=== PATIENT | female | born 1945 | race Caucasian/White ===

== ENCOUNTER → 2017-01-14 | Outpatient (CLI) | payer OTHER ==
[~2017-01-14] MED LIST: ALEVE220 MG PO; ASPIRIN81 M1 PO; CALCIUM PO; CENTRUM SILVER1 CTB PO; CENTRUM SILVER1 EACH PO; COLACE100 MG PO; FLAX SEED OIL1000 M1 PO; K-BICARB99 MG PO; LEVOFLOXACIN500 MG PO; LEVOTHYROXINE0.1 MG PO; LOPRESSOR50 MG PO; NEXIUM40 MG PO; NORFLEX100 MG PO; NORVASC5 MG PO; PAXIL20 MG PO; ULTRAM50 MG PO; VITAMIN C1000 M2 PO; VITAMIN D1000 IU PO; Z-BEC1 TAB PO; ZOCOR20 MG PO; [UNRECOGNIZED DRUG - OTHER] PO
== END | disposition home or self-care (01) ==
LOC: RAD 10:50
DX: Z13.820 Encounter for screening for osteoporosis (principal); Z78.0 Asymptomatic menopausal state

== ENCOUNTER → 2017-04-08 | Outpatient (CLI) | payer OTHER | END | disposition home or self-care (01) | LOC: RAD 15:09 | DX: K59.00 Constipation, unspecified (principal); Z90.49 Acquired absence of other specified parts of digestive tract; Z98.890 Other specified postprocedural states ==

== ENCOUNTER → 2018-03-19 | Outpatient (CLI) | payer OTHER | END | disposition home or self-care (01) | LOC: RAD 15:10 | DX: J40 Bronchitis, not specified as acute or chronic (principal); I10 Essential (primary) hypertension ==

== ENCOUNTER → 2019-05-19 | Outpatient (CLI) | payer OTHER | END | disposition home or self-care (01) | LOC: RESCLI 01:08 | DX: M48.061 Spinal stenosis, lumbar region without neurogenic claudication (principal); J30.2 Other seasonal allergic rhinitis; M79.672 Pain in left foot; I10 Essential (primary) hypertension; E03.9 Hypothyroidism, unspecified; K21.9 Gastro-esophageal reflux disease without esophagitis; K59.00 Constipation, unspecified; E78.5 Hyperlipidemia, unspecified; M15.0 Primary generalized (osteo)arthritis; E66.9 Obesity, unspecified; E87.6 Hypokalemia; E55.9 Vitamin D deficiency, unspecified; Z68.34 Body mass index [BMI] 34.0-34.9, adult; Z79.899 Other long term (current) drug therapy; Z88.8 Allergy status to other drugs, medicaments and biological substances ==

== ENCOUNTER 2019-09-10 12:13 | Emergency (ER) | payer OTHER ==
[~2019-09-10] VITALS: Ht 165.1 cm; Wt 75.7 kg
[2019-09-10] MEDS ORDERED: PREDNISONE50 MG PO (14:12)
[2019-09-10] MEDS ORDERED: KENALOG 0.1%80 GM T (14:12)
[2019-09-10] MEDS ORDERED: LOPRESSOR50 M1 PO (15:05)
== END 2019-09-10 14:59 | disposition home or self-care (01) ==
LOC: ED 12:13
DX: L25.1 Unspecified contact dermatitis due to drugs in contact with skin (principal); T38.5X5A Adverse effect of other estrogens and progestogens, initial encounter; I10 Essential (primary) hypertension; E78.00 Pure hypercholesterolemia, unspecified; Z88.8 Allergy status to other drugs, medicaments and biological substances; Z79.899 Other long term (current) drug therapy; Z79.82 Long term (current) use of aspirin; Y92.89 Other specified places as the place of occurrence of the external cause

== ENCOUNTER → 2019-10-05 | Outpatient (CLI) | payer OTHER ==
[~2019-10-05] MED LIST changes: +KENALOG 0.1%80 GM T; +LOPRESSOR50 M1 PO; +PREDNISONE50 MG PO
== END | disposition home or self-care (01) ==
LOC: RESCLI 00:36
DX: K21.9 Gastro-esophageal reflux disease without esophagitis (principal); M48.061 Spinal stenosis, lumbar region without neurogenic claudication; J30.2 Other seasonal allergic rhinitis; M79.672 Pain in left foot; E78.5 Hyperlipidemia, unspecified; K59.00 Constipation, unspecified; E55.9 Vitamin D deficiency, unspecified; E87.6 Hypokalemia; I10 Essential (primary) hypertension; E03.9 Hypothyroidism, unspecified; T78.40XD Allergy, unspecified, subsequent encounter; Z79.899 Other long term (current) drug therapy; Z90.49 Acquired absence of other specified parts of digestive tract

== ENCOUNTER → 2020-01-19 | Outpatient (CLI) | payer OTHER | END | disposition home or self-care (01) | LOC: LAB 10:36 | PROVIDERS: Nurse Practitioner Primary Care | DX: I10 Essential (primary) hypertension (principal); R80.9 Proteinuria, unspecified ==

== ENCOUNTER → 2020-04-19 | Outpatient (CLI) | payer OTHER | END | disposition home or self-care (01) | LOC: RAD 04-17 13:16 | DX: Z13.820 Encounter for screening for osteoporosis (principal); M85.80 Other specified disorders of bone density and structure, unspecified site; Z78.0 Asymptomatic menopausal state ==

== ENCOUNTER → 2020-06-06 | Outpatient (CLI) | payer OTHER | END | disposition home or self-care (01) | LOC: RESCLI 01:05 | PROVIDERS: ATTEND Internal Medicine | DX: K21.9 Gastro-esophageal reflux disease without esophagitis (principal); M48.061 Spinal stenosis, lumbar region without neurogenic claudication; J30.2 Other seasonal allergic rhinitis; E78.5 Hyperlipidemia, unspecified; E55.9 Vitamin D deficiency, unspecified; I10 Essential (primary) hypertension; T78.40XD Allergy, unspecified, subsequent encounter; E03.9 Hypothyroidism, unspecified; M81.0 Age-related osteoporosis without current pathological fracture; D45 Polycythemia vera; K58.1 Irritable bowel syndrome with constipation; C67.9 Malignant neoplasm of bladder, unspecified; Z79.899 Other long term (current) drug therapy; Z79.82 Long term (current) use of aspirin; Z80.49 Family history of malignant neoplasm of other genital organs; Z98.890 Other specified postprocedural states ==

== ENCOUNTER → 2021-05-28 | Outpatient (CLI) | payer OTHER | END | disposition home or self-care (01) | LOC: RESCLI 00:29 | PROVIDERS: ATTEND Internal Medicine | DX: E78.5 Hyperlipidemia, unspecified (principal); E03.9 Hypothyroidism, unspecified; M48.061 Spinal stenosis, lumbar region without neurogenic claudication; M81.0 Age-related osteoporosis without current pathological fracture; I10 Essential (primary) hypertension; D45 Polycythemia vera; E87.6 Hypokalemia; E55.9 Vitamin D deficiency, unspecified; K21.9 Gastro-esophageal reflux disease without esophagitis; F39 Unspecified mood [affective] disorder; K58.9 Irritable bowel syndrome, unspecified; Z12.11 Encounter for screening for malignant neoplasm of colon; Z79.82 Long term (current) use of aspirin; Z79.899 Other long term (current) drug therapy ==

== ENCOUNTER → 2021-05-30 | Outpatient (CLI) | payer OTHER ==
[2021-05-30 10:09] LABS: BASO % 0.7 % (0.0-1.0); EOS # 0.1 10*3/uL (0.0-0.4); EOS % 2.3 % (1.0-4.0); HEMATOCRIT 42.9 % (37.0-47.0); LYMPH # 1.5 10*3/uL (1.3-4.4); LYMPH % 34.4 % (27.0-41.0); MEAN CELL VOLUME 107.3 fl (81.0-99.0); MEAN CORPUSCULAR HGB 36.3 pg (27.0-31.0); MEAN CORPUSCULAR HGB CONC 33.8 g/dl (33.0-37.0); MEAN PLATELET VOLUME 9.1 fl (9.6-12.3); MONO # 0.4 10*3/uL (0.1-1.0); MONO % 9.8 % (3.0-9.0); NEUT # 2.2 10*3/uL (2.3-7.9); NEUT % 52.6 % (47.0-73.0); PLATELET COUNT AUTOMATED 231 10*3/uL (130-400); RED CELL DISTRI WIDTH 13.7 % (0-14.5); WHITE BLOOD COUNT 4.3 10*3/uL (4.8-10.8)
[2021-05-30 10:26] LABS: ALBUMIN 3.7 gm/dl (3.1-4.5); ALKALINE PHOSPHATASE 51 U/L (45-117); BUN 11 mg/dl (7-24); CHLORIDE 104 mmol/L (98-107); CHOLESTEROL 189 mg/dL (<200); CREATININE 0.57 mg/dL (0.55-1.02); LDL CHOLESTEROL 97 mg/dL (9-159); POTASSIUM 3.6 mmol/L (3.5-5.1); SGOT/AST 18 IU/L (3-35); SGPT/ALT 32 U/L (12-78); SODIUM 139 mmol/L (136-145); TOTAL PROTEIN 7.6 gm/dL (6.4-8.2); TRIGLYCERIDES 156 mg/dl (<150)
== END | disposition home or self-care (01) ==
LOC: LAB 09:53
PROVIDERS: Internal Medicine; ATTEND Internal Medicine
DX: E78.5 Hyperlipidemia, unspecified (principal); E03.9 Hypothyroidism, unspecified; Z12.11 Encounter for screening for malignant neoplasm of colon; Z79.899 Other long term (current) drug therapy

== ENCOUNTER → 2022-05-28 | Outpatient (CLI) | payer OTHER | END | disposition home or self-care (01) | LOC: RESCLI 08:42 | PROVIDERS: ATTEND Student in an Organized Health Care Education/Training Program | DX: F39 Unspecified mood [affective] disorder (principal); K21.9 Gastro-esophageal reflux disease without esophagitis; Z20.822 Contact with and (suspected) exposure to COVID-19; D45 Polycythemia vera; R60.0 Localized edema; Z12.31 Encounter for screening mammogram for malignant neoplasm of breast; M81.0 Age-related osteoporosis without current pathological fracture; Z79.899 Other long term (current) drug therapy; Z88.8 Allergy status to other drugs, medicaments and biological substances; Z79.82 Long term (current) use of aspirin; Z90.49 Acquired absence of other specified parts of digestive tract ==

== ENCOUNTER → 2022-06-30 | Outpatient (CLI) | payer OTHER | END | disposition home or self-care (01) | LOC: RAD 09:30 | PROVIDERS: ATTEND Internal Medicine | DX: M85.88 Other specified disorders of bone density and structure, other site (principal); M81.0 Age-related osteoporosis without current pathological fracture ==

== ENCOUNTER → 2022-10-14 | Outpatient (CLI) | payer MEDICARE ==
[2022-10-14 18:21] LABS: BUN 7 mg/dl (9-23); CHLORIDE 103 mmol/L (98-107); POTASSIUM 3.5 mmol/L (3.4-5.1)
== END | disposition home or self-care (01) ==
LOC: LAB 17:51
PROVIDERS: Nurse Practitioner Primary Care; ATTEND Internal Medicine Endocrinology, Diabetes & Metabolism
DX: M81.0 Age-related osteoporosis without current pathological fracture (principal)

== ENCOUNTER → 2023-04-15 | Outpatient (CLI) | payer OTHER | END | disposition home or self-care (01) | LOC: RAD 10:38 | PROVIDERS: ATTEND Internal Medicine | DX: M17.0 Bilateral primary osteoarthritis of knee (principal) ==

== ENCOUNTER → 2023-06-08 | Outpatient (CLI) | payer OTHER | END | disposition home or self-care (01) | LOC: RAD 10:30 | PROVIDERS: ATTEND Internal Medicine | DX: M19.031 Primary osteoarthritis, right wrist (principal) ==

== ENCOUNTER → 2023-06-23 | Outpatient (CLI) | payer OTHER | END | disposition home or self-care (01) | LOC: RESCLI 01:32 | PROVIDERS: ATTEND Internal Medicine | DX: K59.00 Constipation, unspecified (principal); E63.9 Nutritional deficiency, unspecified; E78.5 Hyperlipidemia, unspecified; M81.0 Age-related osteoporosis without current pathological fracture; E03.9 Hypothyroidism, unspecified; D45 Polycythemia vera; K21.9 Gastro-esophageal reflux disease without esophagitis; K58.9 Irritable bowel syndrome, unspecified; I10 Essential (primary) hypertension; F39 Unspecified mood [affective] disorder; E87.6 Hypokalemia; M48.061 Spinal stenosis, lumbar region without neurogenic claudication; Z98.890 Other specified postprocedural states; Z79.899 Other long term (current) drug therapy ==

== ENCOUNTER → 2023-10-28 | Outpatient (CLI) | payer OTHER | END | disposition home or self-care (01) | LOC: LAB 14:05 | PROVIDERS: ATTEND Nurse Practitioner Family | DX: I10 Essential (primary) hypertension (principal); K13.70 Unspecified lesions of oral mucosa; R10.9 Unspecified abdominal pain; K58.1 Irritable bowel syndrome with constipation ==

== ENCOUNTER → 2023-10-29 | Outpatient (CLI) | payer OTHER | END | disposition home or self-care (01) | LOC: LAB 00:33 | PROVIDERS: ATTEND Internal Medicine Gastroenterology | DX: K13.79 Other lesions of oral mucosa (principal); R10.9 Unspecified abdominal pain ==

== ENCOUNTER 2023-11-07 12:08 | Emergency (ER) | payer OTHER ==
[~2023-11-07] VITALS: Ht 167.6 cm; Wt 77.6 kg
[2023-11-07 12:23] LABS: BASO % 0.5 % (0.0-1.0); EOS # 0.2 10*3/uL (0.0-0.4); EOS % 2.4 % (1.0-4.0); HEMATOCRIT 42.5 % (37.0-47.0); LYMPH # 2.5 10*3/uL (1.3-4.4); LYMPH % 39.6 % (27.0-41.0); MEAN CELL VOLUME 102.7 fl (81.0-99.0); MEAN CORPUSCULAR HGB 33.6 pg (27.0-31.0); MEAN CORPUSCULAR HGB CONC 32.7 g/dl (33.0-37.0); MONO # 0.7 10*3/uL (0.1-1.0); MONO % 11.1 % (3.0-9.0); NEUT # 2.9 10*3/uL (2.3-7.9); NEUT % 46.1 % (47.0-73.0); PLATELET COUNT AUTOMATED 440 10*3/uL (130-400); RED BLOOD COUNT 4.14 10*6/uL (4.10-5.10); RED CELL DISTRI WIDTH 12.5 % (0-14.5); WHITE BLOOD COUNT 6.3 10*3/uL (4.8-10.8)
[2023-11-07 12:36] LABS: ACT PARTIAL THROMBO TIME 26.2 SECONDS (20.0-32.1)
[2023-11-07 12:37] LABS: BUN 12 mg/dl (9-23); CHLORIDE 104 mmol/L (98-107); POTASSIUM 3.6 mmol/L (3.4-5.1)
== END 2023-11-07 14:15 | disposition home or self-care (01) ==
LOC: ED 12:08
PROVIDERS: Physician Assistant Medical
DX: R04.0 Epistaxis (principal); F32.A Depression, unspecified; I10 Essential (primary) hypertension; E78.00 Pure hypercholesterolemia, unspecified; Z88.8 Allergy status to other drugs, medicaments and biological substances; Z98.890 Other specified postprocedural states; Z98.51 Tubal ligation status; Z90.49 Acquired absence of other specified parts of digestive tract

== ENCOUNTER → 2023-12-25 | Outpatient (CLI) | payer OTHER ==
[2023-12-25 14:47] LABS: BASO # 0.1 10*3/uL (0.0-0.1); BASO % 0.6 % (0.0-1.0); EOS # 0.2 10*3/uL (0.0-0.4); EOS % 2.1 % (1.0-4.0); HEMATOCRIT 42.4 % (37.0-47.0); LYMPH # 2.8 10*3/uL (1.3-4.4); LYMPH % 36.4 % (27.0-41.0); MEAN CELL VOLUME 97.9 fl (81.0-99.0); MEAN CORPUSCULAR HGB 32.1 pg (27.0-31.0); MEAN CORPUSCULAR HGB CONC 32.8 g/dl (33.0-37.0); MEAN PLATELET VOLUME 9.2 fl (9.6-12.3); MONO # 0.9 10*3/uL (0.1-1.0); NEUT # 3.8 10*3/uL (2.3-7.9); NEUT % 48.5 % (47.0-73.0); PLATELET COUNT AUTOMATED 456 10*3/uL (130-400); RED BLOOD COUNT 4.33 10*6/uL (4.10-5.10); WHITE BLOOD COUNT 7.7 10*3/uL (4.8-10.8)
[2023-12-25 15:00] LABS: BUN 14 mg/dl (9-23)
== END | disposition home or self-care (01) ==
LOC: LAB 14:25
PROVIDERS: Anesthesiology; ATTEND Internal Medicine
DX: M48.061 Spinal stenosis, lumbar region without neurogenic claudication (principal); M54.16 Radiculopathy, lumbar region; G89.4 Chronic pain syndrome; M51.9 Unspecified thoracic, thoracolumbar and lumbosacral intervertebral disc disorder

== ENCOUNTER 2024-03-21 16:42 | Emergency (ER) | payer OTHER ==
[~2024-03-21] VITALS: Wt 80.3 kg
[2024-03-21] MEDS ORDERED: ACETAMINOPHEN 325 MG TAB PO ONE (19:05)
[2024-03-21] MEDS ORDERED: Tdap Vaccine 0.5 ML SYR (Adult Vaccine) IM ONE (20:15)
== END 2024-03-21 21:14 | disposition home or self-care (01) ==
LOC: ED 16:42
DX: S01.01XA Laceration without foreign body of scalp, initial encounter (principal); M25.511 Pain in right shoulder; R07.81 Pleurodynia; M25.551 Pain in right hip; Z88.8 Allergy status to other drugs, medicaments and biological substances; Z79.899 Other long term (current) drug therapy; Z79.82 Long term (current) use of aspirin; Z98.890 Other specified postprocedural states; Z90.49 Acquired absence of other specified parts of digestive tract; Z98.51 Tubal ligation status; W22.8XXA Striking against or struck by other objects, initial encounter; Y93.89 Activity, other specified; Y92.89 Other specified places as the place of occurrence of the external cause; Y99.8 Other external cause status

== ENCOUNTER → 2024-07-04 | Outpatient (CLI) | payer MEDICARE | END | disposition home or self-care (01) | LOC: RAD 08:57 | PROVIDERS: ATTEND Internal Medicine Endocrinology, Diabetes & Metabolism | DX: M81.0 Age-related osteoporosis without current pathological fracture (principal) ==

== ENCOUNTER 2025-05-04 18:13 | Inpatient (IN) | payer MEDICARE ==
[~2025-05-04] VITALS: Ht 165.1 cm; Wt 80.9 kg
[2025-05-04 18:13] VITALS: BP 144/86
[2025-05-04 18:43] LABS: BASO # 0.0 10*3/uL (0.0-0.1); BASO % 0.4 % (0.0-1.0); EOS # 0.1 10*3/uL (0.0-0.4); EOS % 3.0 % (1.0-4.0); MEAN CELL VOLUME 92.2 fl (81.0-99.0); MEAN CORPUSCULAR HGB 30.5 pg (27.0-31.0); MEAN PLATELET VOLUME 10.0 fl (9.6-12.3); MONO # 0.8 10*3/uL (0.1-1.0); MONO % 16.3 % (3.0-9.0); NEUT # 2.6 10*3/uL (2.3-7.9); NEUT % 55.0 % (47.0-73.0); NUCLEATED RED BLOOD CELL 0.0 % (0.0-0.0); NUCLEATED RED BLOOD CELL 0.0 10*3/uL (0.0-0.0); PLATELET COUNT AUTOMATED 333 10*3/uL (130-400); RED CELL DISTRI WIDTH 14.4 % (0-14.5)
[2025-05-04 19:01] LABS: BUN 7 mg/dl (9-23)
[2025-05-04] MEDS ORDERED: POTASSIUM CHLORIDE 20 MEQ TAB PO ONE (19:30)
[2025-05-04 19:55] VITALS: BP 156/87
[2025-05-04] MEDS ORDERED: POTASSIUM CHLO10 MEQ PO (20:13)
[2025-05-04] MEDS ORDERED: OMEPRAZOLE40 MG PO (20:14)
[2025-05-04] MEDS ORDERED: LEVOTHYROXINE100 MC1 PO (20:14)
[2025-05-04] MEDS ORDERED: JAKAFI PO ×2 (20:15→20:16)
[2025-05-04] MEDS ORDERED: FUROSEMIDE20 M1 PO (20:15)
[2025-05-04] MEDS ORDERED: DULOXETINE HCL30 MG PO (20:16)
[2025-05-04] MEDS ORDERED: MYRBETRIQ25 M1 PO (20:17)
[2025-05-04] MEDS ORDERED: PREGABALIN50 MG PO (20:17)
[2025-05-04] MEDS ORDERED: ALENDRONATE SOD70 M1 PO (20:18)
[2025-05-04 20:37] VITALS: BP 121/84
[2025-05-04 20:45] VITALS: BP 149/72
[2025-05-04] MEDS ORDERED: Ondansetron Hydrochloride 4 MG/2 ML VIAL IV PRN (21:45)
[2025-05-04] MEDS ORDERED: Acetaminophen/Hydrocodone 5 MG/325 MG TABLET PO PRN (21:45)
[2025-05-04] MEDS ORDERED: ACETAMINOPHEN 650 MG SUPP R PRN (21:45)
[2025-05-04] MEDS ORDERED: ACETAMINOPHEN 325 MG TAB PO PRN (21:45)
[2025-05-04] MEDS ORDERED: SODIUM CHLORIDE 0.9% 1,000 ML IV ONE ×2 (21:50→22:20)
[2025-05-04 23:37] LABS: BASO # 0.0 10*3/uL (0.0-0.1); BASO % 0.7 % (0.0-1.0); EOS # 0.1 10*3/uL (0.0-0.4); EOS % 2.5 % (1.0-4.0); MEAN CELL VOLUME 93.4 fl (81.0-99.0); MEAN CORPUSCULAR HGB 30.2 pg (27.0-31.0); MEAN PLATELET VOLUME 9.9 fl (9.6-12.3); MONO # 0.7 10*3/uL (0.1-1.0); MONO % 17.1 % (3.0-9.0); NEUT # 2.4 10*3/uL (2.3-7.9); NEUT % 58.9 % (47.0-73.0); NUCLEATED RED BLOOD CELL 0.0 % (0.0-0.0); NUCLEATED RED BLOOD CELL 0.0 10*3/uL (0.0-0.0); PLATELET COUNT AUTOMATED 337 10*3/uL (130-400); RED CELL DISTRI WIDTH 14.4 % (0-14.5)
[2025-05-05] VITALS: BP 152/88
[2025-05-05] MEDS ORDERED: ALLEGRA ALLERG180 M2 PO (01:25)
[2025-05-05 04:00] VITALS: BP 137/80
[2025-05-05 05:56] LABS: BASO # 0.0 10*3/uL (0.0-0.1); BASO % 0.5 % (0.0-1.0); EOS # 0.1 10*3/uL (0.0-0.4); EOS % 2.3 % (1.0-4.0); MEAN CELL VOLUME 94.1 fl (81.0-99.0); MEAN CORPUSCULAR HGB 30.2 pg (27.0-31.0); MEAN PLATELET VOLUME 10.3 fl (9.6-12.3); MONO # 0.8 10*3/uL (0.1-1.0); MONO % 18.9 % (3.0-9.0); NEUT # 2.6 10*3/uL (2.3-7.9); NEUT % 58.0 % (47.0-73.0); NUCLEATED RED BLOOD CELL 0.0 % (0.0-0.0); NUCLEATED RED BLOOD CELL 0.0 10*3/uL (0.0-0.0); PLATELET COUNT AUTOMATED 331 10*3/uL (130-400); RED CELL DISTRI WIDTH 14.4 % (0-14.5)
[2025-05-05 06:14] LABS: FREE T4 1.07 ng/dl (0.89-1.76); SGPT/ALT 40 U/L (5-49)
[2025-05-05 06:23] LABS: BUN < 5 mg/dl (9-23)
[2025-05-05 08:00] VITALS: BP 152/92
[2025-05-05] MEDS ORDERED: Cholecalciferol 5,000 IU CAP (125 MCG) PO SCH (10:00)
[2025-05-05] MEDS ORDERED: POTASSIUM CHLORIDE 10 MEQ TAB PO SCH (10:00)
[2025-05-05] MEDS ORDERED: PREGABALIN 50 MG CAP PO SCH (10:00)
[2025-05-05] MEDS ORDERED: FUROSEMIDE 20 MG TAB PO SCH (10:00)
[2025-05-05] MEDS ORDERED: MIRABEGRON 25 MG PO SCH (10:00)
[2025-05-05] MEDS ORDERED: JAKAFI 5 MG PO SCH (10:00)
[2025-05-05] MEDS ORDERED: SIMVASTATIN 20 MG TAB PO SCH (10:00)
[2025-05-05 12:00] VITALS: BP 143/79
[2025-05-05 16:00] VITALS: BP 119/61
[2025-05-05] MEDS ORDERED: JAKAFI 10 MG PO SCH (22:00)
[2025-05-06 00:02] VITALS: BP 140/76
[2025-05-06 05:12] LABS: ACT PARTIAL THROMBO TIME 26.3 SECONDS (20.0-32.1)
[2025-05-06 05:20] LABS: BUN 7 mg/dl (9-23)
[2025-05-06 06:04] LABS: BASO # 0.0 10*3/uL (0.0-0.1); BASO % 0.6 % (0.0-1.0); EOS # 0.1 10*3/uL (0.0-0.4); EOS % 2.5 % (1.0-4.0); MEAN CELL VOLUME 94.8 fl (81.0-99.0); MEAN CORPUSCULAR HGB 30.1 pg (27.0-31.0); MEAN PLATELET VOLUME 10.1 fl (9.6-12.3); MONO # 0.9 10*3/uL (0.1-1.0); MONO % 18.0 % (3.0-9.0); NEUT # 2.9 10*3/uL (2.3-7.9); NEUT % 57.1 % (47.0-73.0); NUCLEATED RED BLOOD CELL 0.0 % (0.0-0.0); NUCLEATED RED BLOOD CELL 0.0 10*3/uL (0.0-0.0); PLATELET COUNT AUTOMATED 351 10*3/uL (130-400); RED CELL DISTRI WIDTH 14.6 % (0-14.5)
[2025-05-06 08:00] VITALS: BP 152/82
== END 2025-05-06 12:31 | disposition home or self-care (01) | DRG 392 ==
LOC: ED 18:13 → ICCU 20:17 → EDHOLD 20:17 → ICCU 20:34
PROVIDERS: Emergency Medicine; Internal Medicine; Surgery; ADMIT Family Medicine; ATTEND Family Medicine
DX: K52.9 Noninfective gastroenteritis and colitis, unspecified (principal); K92.2 Gastrointestinal hemorrhage, unspecified; E87.6 Hypokalemia; E83.51 Hypocalcemia; D45 Polycythemia vera; E03.9 Hypothyroidism, unspecified; I10 Essential (primary) hypertension; K21.9 Gastro-esophageal reflux disease without esophagitis; Z66 Do not resuscitate; G62.9 Polyneuropathy, unspecified; M81.0 Age-related osteoporosis without current pathological fracture; D72.810 Lymphocytopenia; E78.2 Mixed hyperlipidemia; R73.9 Hyperglycemia, unspecified; E83.39 Other disorders of phosphorus metabolism; R74.01 Elevation of levels of liver transaminase levels; Z88.8 Allergy status to other drugs, medicaments and biological substances; Z91.09 Other allergy status, other than to drugs and biological substances; Z79.899 Other long term (current) drug therapy; Z79.01 Long term (current) use of anticoagulants; Z79.2 Long term (current) use of antibiotics; Z90.49 Acquired absence of other specified parts of digestive tract; Z98.1 Arthrodesis status; Z80.1 Family history of malignant neoplasm of trachea, bronchus and lung; Z83.3 Family history of diabetes mellitus